=== PATIENT | female | born 1935 | race Caucasian/White ===

== ENCOUNTER 2017-06-15 07:08 | Inpatient (IN) | payer MEDICARE, BC ==
[~2017-06-15] VITALS: Ht 165.1 cm; Wt 78.6 kg
[~2017-06-15 07:08] MED LIST: ALPR.25; ALPR.25 PO; ASPI81CH PO; ASPI81EC PO; ATOR10; Amiodarone HCl200 MG PO; BUSP10 PO; CETI10; CETI10 PO; CITA20; CITA20 PO; CYAN1000I IM; CYAN500 PO; ERGO50000 PO; ESOM20 PO; FLUT.05NI; HYDACE5; IBUHYD PO; LEVSOD100; LEVSOD75 PO; LISI20; LISINOPRIL (ZESTRIL) PO; LORPSEER12 PO; LOVA40; META800 PO; METO100ER; NITR.4SL SL; OMEG1CAP30 PO; Omeprazole20 M1; SOTO80 PO; WARF2.5 PO; WARF5
[2017-06-15 07:36] LABS: BASOPHILS ABSOLUTE AUTO 0.01 K/mm3 (0.00-0.23); BASOPHILS PERCENT AUTO 0 % (0-2); EOSINOPHILS ABSOLUTE AUTO 0.01 K/mm3 (0.00-0.68); EOSINOPHILS PERCENT AUTO 0 % (0-6); Hemoglobin 11.5 g/dL (11.5-16.0); IMMATURE GRAN ABSOLUTE AUTO 0.03 K/mm3 (0.00-0.10); IMMATURE GRAN PERCENT AUTO 0 % (0-1); LYMPHOCYTES ABSOLUTE AUTO 0.35 K/mm3 (0.84-5.20); LYMPHOCYTES PERCENT AUTO 4 % (21-46); MONOCYTES ABSOLUTE AUTO 0.24 K/mm3 (0.16-1.47); MONOCYTES PERCENT AUTO 3 % (4-13); Mean Corpuscular HGB 32.9 pg (26.0-34.0); Mean Corpuscular HGB Conc 31.9 g/dL (31.5-36.5); Mean Corpuscular Volume 103 fL (80-100); Mean Platelet Volume 11.5 fL (9.1-12.4); NEUTROPHILS ABSOLUTE AUTO 7.55 K/mm3 (1.96-9.15); NEUTROPHILS PERCENT AUTO 92 % (41-73); Platelet Count 171 K/mm3 (150-400); RDW Coefficient Variation 12.2 % (11.7-14.2); RDW Standard Deviation 46.4 fL (35.1-46.3); White Blood Cell Count 8.19 K/mm3 (4.00-11.30)
[2017-06-15 07:54] LABS: Alanine Aminotransfer (ALT/SGP 16 U/L (12-78); Albumin, Blood 3.5 g/dL (3.4-5.0); Alk Phos 30 U/L (50-136); Anion Gap 8 mmol/L (6-16); Aspartate Aminotrans (AST/SGOT 16 U/L (12-37); Bilirubin, Total 0.5 mg/dL (0.1-1.0); Blood Urea Nitrogen 15 mg/dL (8-24); Bun/Creatinine Ratio 14.7 (12.0-20.0); CO2, Blood 29 mmol/L (21-32); Calcium, Blood 7.7 mg/dL (8.5-10.1); Chloride, Blood 106 mmol/L (98-108); Creatinine, Blood 1.02 mg/dL (0.40-1.00); Free Thyroxine 1.33 ng/dL (0.70-1.60); Globulin, Blood 3.6 g/dL (2.2-4.0); Glomerular Filtration Rate 55 (60-); Glucose, Blood 104 mg/dL (70-99); Potassium, Blood 3.6 mmol/L (3.5-5.5); Sodium, Blood 143 mmol/L (136-145); Total Protein, Blood 7.1 g/dL (6.4-8.2); Troponin I <0.015 ng/mL (0.000-0.040)
[2017-06-15 10:10] LABS: International Normalized Ratio 2.97
[2017-06-15] MEDS ORDERED: TRAZ100 PO (13:24)
[2017-06-16 04:33] LABS: BASOPHILS ABSOLUTE AUTO 0.03 K/mm3 (0.00-0.23); BASOPHILS PERCENT AUTO 0 % (0-2); EOSINOPHILS ABSOLUTE AUTO 0.03 K/mm3 (0.00-0.68); EOSINOPHILS PERCENT AUTO 0 % (0-6); Hematocrit 31.6 % (33.0-51.0); IMMATURE GRAN ABSOLUTE AUTO 0.07 K/mm3 (0.00-0.10); IMMATURE GRAN PERCENT AUTO 0 % (0-1); LYMPHOCYTES ABSOLUTE AUTO 1.07 K/mm3 (0.84-5.20); LYMPHOCYTES PERCENT AUTO 7 % (21-46); MONOCYTES ABSOLUTE AUTO 0.73 K/mm3 (0.16-1.47); MONOCYTES PERCENT AUTO 5 % (4-13); Mean Corpuscular HGB 32.2 pg (26.0-34.0); Mean Corpuscular HGB Conc 31.6 g/dL (31.5-36.5); Mean Corpuscular Volume 102 fL (80-100); Mean Platelet Volume 12.1 fL (9.1-12.4); NEUTROPHILS ABSOLUTE AUTO 14.07 K/mm3 (1.96-9.15); NEUTROPHILS PERCENT AUTO 88 % (41-73); Platelet Count 158 K/mm3 (150-400); RDW Coefficient Variation 12.4 % (11.7-14.2); RDW Standard Deviation 46.1 fL (35.1-46.3); Red Blood Cell Count 3.11 M/mm3 (3.80-5.20)
[2017-06-16 04:53] LABS: International Normalized Ratio 3.16
[2017-06-16 04:55] LABS: Calcium, Blood 7.4 mg/dL (8.5-10.1); Creatinine, Blood 1.06 mg/dL (0.40-1.00); Potassium, Blood 3.3 mmol/L (3.5-5.5)
[2017-06-17 04:40] LABS: BASOPHILS ABSOLUTE AUTO 0.02 K/mm3 (0.00-0.23); BASOPHILS PERCENT AUTO 0 % (0-2); EOSINOPHILS ABSOLUTE AUTO 0.11 K/mm3 (0.00-0.68); EOSINOPHILS PERCENT AUTO 1 % (0-6); Hematocrit 30.9 % (33.0-51.0); Hemoglobin 9.7 g/dL (11.5-16.0); IMMATURE GRAN ABSOLUTE AUTO 0.04 K/mm3 (0.00-0.10); IMMATURE GRAN PERCENT AUTO 0 % (0-1); LYMPHOCYTES ABSOLUTE AUTO 0.93 K/mm3 (0.84-5.20); LYMPHOCYTES PERCENT AUTO 10 % (21-46); MONOCYTES ABSOLUTE AUTO 0.56 K/mm3 (0.16-1.47); MONOCYTES PERCENT AUTO 6 % (4-13); Mean Corpuscular HGB 32.3 pg (26.0-34.0); Mean Corpuscular HGB Conc 31.4 g/dL (31.5-36.5); Mean Corpuscular Volume 103 fL (80-100); NEUTROPHILS ABSOLUTE AUTO 7.38 K/mm3 (1.96-9.15); NEUTROPHILS PERCENT AUTO 82 % (41-73); Platelet Count 143 K/mm3 (150-400); RDW Coefficient Variation 12.4 % (11.7-14.2); RDW Standard Deviation 46.7 fL (35.1-46.3); White Blood Cell Count 9.04 K/mm3 (4.00-11.30)
[2017-06-17 04:56] LABS: International Normalized Ratio 3.54; Prothrombin Time Results 38.3 Sec (9.7-11.5)
[2017-06-17 05:01] LABS: Albumin/Globulin Ratio 0.8 (0.8-1.8); Bilirubin, Total 0.4 mg/dL (0.1-1.0); Bun/Creatinine Ratio 16.1 (12.0-20.0); Calcium, Blood 7.8 mg/dL (8.5-10.1); Creatinine, Blood 1.37 mg/dL (0.40-1.00); Globulin, Blood 3.7 g/dL (2.2-4.0); Potassium, Blood 3.8 mmol/L (3.5-5.5); Total Protein, Blood 6.7 g/dL (6.4-8.2)
[2017-06-18 04:09] LABS: BASOPHILS ABSOLUTE AUTO 0.03 K/mm3 (0.00-0.23); BASOPHILS PERCENT AUTO 1 % (0-2); EOSINOPHILS ABSOLUTE AUTO 0.11 K/mm3 (0.00-0.68); EOSINOPHILS PERCENT AUTO 2 % (0-6); Hematocrit 32.7 % (33.0-51.0); Hemoglobin 10.1 g/dL (11.5-16.0); IMMATURE GRAN ABSOLUTE AUTO 0.01 K/mm3 (0.00-0.10); IMMATURE GRAN PERCENT AUTO 0 % (0-1); LYMPHOCYTES ABSOLUTE AUTO 1.15 K/mm3 (0.84-5.20); LYMPHOCYTES PERCENT AUTO 19 % (21-46); MONOCYTES ABSOLUTE AUTO 0.55 K/mm3 (0.16-1.47); MONOCYTES PERCENT AUTO 9 % (4-13); Mean Corpuscular HGB 32.3 pg (26.0-34.0); Mean Corpuscular HGB Conc 30.9 g/dL (31.5-36.5); Mean Corpuscular Volume 105 fL (80-100); Mean Platelet Volume 12.1 fL (9.1-12.4); NEUTROPHILS ABSOLUTE AUTO 4.37 K/mm3 (1.96-9.15); NEUTROPHILS PERCENT AUTO 70 % (41-73); Platelet Count 157 K/mm3 (150-400); RDW Coefficient Variation 12.2 % (11.7-14.2); RDW Standard Deviation 46.8 fL (35.1-46.3); Red Blood Cell Count 3.13 M/mm3 (3.80-5.20); White Blood Cell Count 6.22 K/mm3 (4.00-11.30)
[2017-06-18 04:19] LABS: International Normalized Ratio 2.3; Prothrombin Time Results 24.5 Sec (9.7-11.5)
[2017-06-18 04:30] LABS: Albumin, Blood 3.1 g/dL (3.4-5.0); Anion Gap 7 mmol/L (6-16); Blood Urea Nitrogen 22 mg/dL (8-24); CO2, Blood 29 mmol/L (21-32); Calcium, Blood 8.1 mg/dL (8.5-10.1); Chloride, Blood 104 mmol/L (98-108); Creatinine, Blood 1.16 mg/dL (0.40-1.00); Glomerular Filtration Rate 48 (60-); Glucose, Blood 102 mg/dL (70-99); Phosphorus, Blood 2.3 mg/dL (2.5-4.9); Potassium, Blood 3.8 mmol/L (3.5-5.5); Sodium, Blood 140 mmol/L (136-145)
[2017-06-18] MEDS ORDERED: METOPROLOL TARTRATE PO (11:07)
[2017-06-18] MEDS ORDERED: FURO20 PO (11:09)
[2017-06-18] MEDS ORDERED: LEVFLO250 PO (11:10)
[2017-06-19 04:23] LABS: Prothrombin Time Results 21.2 Sec (9.7-11.5)
== END 2017-06-19 11:45 | disposition home or self-care (01) | DRG 871 ==
LOC: ER 07:08 → PCU 09:40
PROVIDERS: Emergency Medicine; Family Medicine; Internal Medicine
DX: A41.9 Sepsis, unspecified organism (principal); I50.23 Acute on chronic systolic (congestive) heart failure; J18.9 Pneumonia, unspecified organism; R04.2 Hemoptysis; I48.91 Unspecified atrial fibrillation; Z79.01 Long term (current) use of anticoagulants; I11.0 Hypertensive heart disease with heart failure; E03.9 Hypothyroidism, unspecified; Z79.82 Long term (current) use of aspirin
CPT/HCPCS: 36415; 71046; 80048; 80053; 80069; 83605; 83735; 83880; 84439; 84443; 84484; 85025; 85610; 87070; 87205; 87449; 93005; 93010; 93306; 94760; 96365; 96375; 96376; 99285; J1940; J1956

== ENCOUNTER 2017-07-09 18:21 | Inpatient (IN) | payer MEDICARE, BC ==
[~2017-07-09] VITALS: Ht 162.6 cm; Wt 78.0 kg
[~2017-07-09 18:21] MED LIST changes: +FURO20 PO; +LEVFLO250 PO; +Lopressor 50 mg50 MG PO; +TRAZ100 PO
[2017-07-09 18:44] LABS: BASOPHILS ABSOLUTE AUTO 0.02 K/mm3 (0.00-0.23); BASOPHILS PERCENT AUTO 0 % (0-2); EOSINOPHILS ABSOLUTE AUTO 0.04 K/mm3 (0.00-0.68); EOSINOPHILS PERCENT AUTO 1 % (0-6); Hemoglobin 10.9 g/dL (11.5-16.0); IMMATURE GRAN ABSOLUTE AUTO 0.01 K/mm3 (0.00-0.10); IMMATURE GRAN PERCENT AUTO 0 % (0-1); LYMPHOCYTES ABSOLUTE AUTO 1.21 K/mm3 (0.84-5.20); LYMPHOCYTES PERCENT AUTO 24 % (21-46); MONOCYTES ABSOLUTE AUTO 0.51 K/mm3 (0.16-1.47); MONOCYTES PERCENT AUTO 10 % (4-13); Mean Corpuscular HGB 32.8 pg (26.0-34.0); Mean Corpuscular HGB Conc 32.1 g/dL (31.5-36.5); Mean Corpuscular Volume 102 fL (80-100); Mean Platelet Volume 11.4 fL (9.1-12.4); NEUTROPHILS ABSOLUTE AUTO 3.21 K/mm3 (1.96-9.15); NEUTROPHILS PERCENT AUTO 64 % (41-73); Platelet Count 186 K/mm3 (150-400); RDW Coefficient Variation 12.9 % (11.7-14.2); RDW Standard Deviation 48.5 fL (35.1-46.3); Red Blood Cell Count 3.32 M/mm3 (3.80-5.20)
[2017-07-09 19:04] LABS: Alanine Aminotransfer (ALT/SGP 57 U/L (12-78); Albumin, Blood 3.7 g/dL (3.4-5.0); Albumin/Globulin Ratio 1.1 (0.8-1.8); Alk Phos 36 U/L (50-136); Anion Gap 6 mmol/L (6-16); Aspartate Aminotrans (AST/SGOT 38 U/L (12-37); Bilirubin, Total 0.3 mg/dL (0.1-1.0); Blood Urea Nitrogen 17 mg/dL (8-24); Bun/Creatinine Ratio 18.7 (12.0-20.0); CO2, Blood 27 mmol/L (21-32); Calcium, Blood 8.2 mg/dL (8.5-10.1); Chloride, Blood 109 mmol/L (98-108); Creatinine, Blood 0.91 mg/dL (0.40-1.00); Globulin, Blood 3.4 g/dL (2.2-4.0); Glomerular Filtration Rate >60 (60-); Glucose, Blood 99 mg/dL (70-99); Potassium, Blood 3.8 mmol/L (3.5-5.5); Sodium, Blood 142 mmol/L (136-145); Total Protein, Blood 7.1 g/dL (6.4-8.2); Troponin I <0.015 ng/mL (0.000-0.040)
[2017-07-09 20:02] LABS: International Normalized Ratio 1.54; Prothrombin Time Results 16.2 Sec (9.7-11.5)
[2017-07-09 23:08] LABS: Magnesium, Blood 2.2 mg/dL (1.6-2.4)
[2017-07-10] MEDS ORDERED: CETI5 PO (00:22)
[2017-07-10] MEDS ORDERED: HIGH POTENCY I134 MG PO (00:27)
[2017-07-10] MEDS ORDERED: CYAN1000I IM (00:28)
[2017-07-10 02:04] LABS: Source, Urine Clean Catch
[2017-07-10 02:10] LABS: Bilirubin, Urine Neg (Neg); Blood, Urine Neg (Neg); Glucose Qualitative, Urine Neg (Neg); Ketones, Urine Neg (Neg); Leukocyte Esterase, Urine Neg (Neg); Nitrite, Urine Neg (Neg); Protein, Urine Neg (Neg); Specific Gravity, Urine 1.005 (1.003-1.022); Urobilinogen, Urine NORM (Normal); pH, Urine 6.5 (5.0-8.0)
[2017-07-10 02:11] LABS: Appearance, Urine Clear (Clear); Color, Urine Pale Yellow (P-Yellow)
[2017-07-10 03:09] LABS: BASOPHILS ABSOLUTE AUTO 0.03 K/mm3 (0.00-0.23); BASOPHILS PERCENT AUTO 1 % (0-2); EOSINOPHILS ABSOLUTE AUTO 0.06 K/mm3 (0.00-0.68); EOSINOPHILS PERCENT AUTO 1 % (0-6); Hemoglobin 10.8 g/dL (11.5-16.0); IMMATURE GRAN ABSOLUTE AUTO 0.01 K/mm3 (0.00-0.10); IMMATURE GRAN PERCENT AUTO 0 % (0-1); LYMPHOCYTES ABSOLUTE AUTO 1.24 K/mm3 (0.84-5.20); LYMPHOCYTES PERCENT AUTO 29 % (21-46); MONOCYTES ABSOLUTE AUTO 0.49 K/mm3 (0.16-1.47); MONOCYTES PERCENT AUTO 11 % (4-13); Mean Corpuscular HGB 33.3 pg (26.0-34.0); Mean Corpuscular HGB Conc 32.7 g/dL (31.5-36.5); Mean Corpuscular Volume 102 fL (80-100); Mean Platelet Volume 11.5 fL (9.1-12.4); NEUTROPHILS ABSOLUTE AUTO 2.52 K/mm3 (1.96-9.15); NEUTROPHILS PERCENT AUTO 58 % (41-73); Platelet Count 181 K/mm3 (150-400); RDW Coefficient Variation 12.9 % (11.7-14.2); Red Blood Cell Count 3.24 M/mm3 (3.80-5.20); White Blood Cell Count 4.35 K/mm3 (4.00-11.30)
[2017-07-10 03:24] LABS: International Normalized Ratio 1.43
[2017-07-10 03:25] LABS: Alanine Aminotransfer (ALT/SGP 51 U/L (12-78); Albumin, Blood 3.5 g/dL (3.4-5.0); Albumin/Globulin Ratio 1.1 (0.8-1.8); Alk Phos 34 U/L (50-136); Anion Gap 6 mmol/L (6-16); Aspartate Aminotrans (AST/SGOT 30 U/L (12-37); Bilirubin, Total 0.3 mg/dL (0.1-1.0); Blood Urea Nitrogen 15 mg/dL (8-24); Bun/Creatinine Ratio 16.1 (12.0-20.0); CO2, Blood 28 mmol/L (21-32); CPK Creatine Kinase 92 U/L (26-193); Calcium, Blood 7.9 mg/dL (8.5-10.1); Chloride, Blood 110 mmol/L (98-108); Creatinine, Blood 0.93 mg/dL (0.40-1.00); Globulin, Blood 3.2 g/dL (2.2-4.0); Glomerular Filtration Rate >60 (60-); Glucose, Blood 100 mg/dL (70-99); Potassium, Blood 3.4 mmol/L (3.5-5.5); Sodium, Blood 144 mmol/L (136-145); Total Protein, Blood 6.7 g/dL (6.4-8.2); Troponin I <0.015 ng/mL (0.000-0.040)
[2017-07-10 11:18] LABS: CPK Creatine Kinase 101 U/L (26-193); Troponin I <0.015 ng/mL (0.000-0.040)
[2017-07-11 04:35] LABS: BASOPHILS PERCENT AUTO 0 % (0-2); EOSINOPHILS PERCENT AUTO 0 % (0-6); Hematocrit 33.7 % (33.0-51.0); Hemoglobin 10.6 g/dL (11.5-16.0); IMMATURE GRAN ABSOLUTE AUTO 0.03 K/mm3 (0.00-0.10); IMMATURE GRAN PERCENT AUTO 1 % (0-1); LYMPHOCYTES ABSOLUTE AUTO 0.47 K/mm3 (0.84-5.20); LYMPHOCYTES PERCENT AUTO 7 % (21-46); MONOCYTES ABSOLUTE AUTO 0.21 K/mm3 (0.16-1.47); MONOCYTES PERCENT AUTO 3 % (4-13); Mean Corpuscular HGB 32.6 pg (26.0-34.0); Mean Corpuscular HGB Conc 31.5 g/dL (31.5-36.5); Mean Corpuscular Volume 104 fL (80-100); Mean Platelet Volume 11.7 fL (9.1-12.4); NEUTROPHILS ABSOLUTE AUTO 5.71 K/mm3 (1.96-9.15); NEUTROPHILS PERCENT AUTO 89 % (41-73); Platelet Count 174 K/mm3 (150-400); RDW Coefficient Variation 12.8 % (11.7-14.2); RDW Standard Deviation 48.5 fL (35.1-46.3); Red Blood Cell Count 3.25 M/mm3 (3.80-5.20); White Blood Cell Count 6.42 K/mm3 (4.00-11.30)
[2017-07-11 04:51] LABS: International Normalized Ratio 1.68; Prothrombin Time Results 17.8 Sec (9.7-11.5)
[2017-07-11 04:59] LABS: Albumin, Blood 3.3 g/dL (3.4-5.0); Anion Gap 6 mmol/L (6-16); Blood Urea Nitrogen 14 mg/dL (8-24); Bun/Creatinine Ratio 16.9 (12.0-20.0); CO2, Blood 27 mmol/L (21-32); Calcium, Blood 7.6 mg/dL (8.5-10.1); Chloride, Blood 110 mmol/L (98-108); Creatinine, Blood 0.83 mg/dL (0.40-1.00); Glomerular Filtration Rate >60 (60-); Glucose, Blood 126 mg/dL (70-99); Phosphorus, Blood 2.8 mg/dL (2.5-4.9); Potassium, Blood 4.4 mmol/L (3.5-5.5); Sodium, Blood 143 mmol/L (136-145)
[2017-07-11] MEDS ORDERED: POTASSIUM CHLO20 MEQ PO (12:23)
[2017-07-11] MEDS ORDERED: LANOXIN250 MC1 PO (12:24)
== END 2017-07-11 13:45 | disposition home or self-care (01) | DRG 287 ==
LOC: ER 18:21 → ICUW 18:22 → ER 18:22 → MEDS 18:22 → ICUW 23:25
PROVIDERS: Emergency Medicine; Family Medicine; Internal Medicine
PROC: B211YZZ Fluoroscopy of Multiple Coronary Arteries using Other Contrast (ICD-10-PCS; principal; 2017-07-10)
PROC: B215YZZ Fluoroscopy of Left Heart using Other Contrast (ICD-10-PCS; 2017-07-10)
DX: I11.0 Hypertensive heart disease with heart failure (principal); I50.23 Acute on chronic systolic (congestive) heart failure; I48.91 Unspecified atrial fibrillation; Z79.01 Long term (current) use of anticoagulants; E87.6 Hypokalemia; Z86.711 Personal history of pulmonary embolism; Z87.898 Personal history of other specified conditions; Z86.718 Personal history of other venous thrombosis and embolism; E03.9 Hypothyroidism, unspecified; F41.9 Anxiety disorder, unspecified; K21.9 Gastro-esophageal reflux disease without esophagitis
CPT/HCPCS: 36415; 71046; 80053; 80069; 81003; 82550; 83735; 83880; 84484; 85025; 85610; 93005; 93010; 93458; 96374; 96375; 96376; 99152; 99285; C1769; C1894; G0378; J1160; J1200; J1644; J1650; J1720; J1940; J2250; J2930; J3010; J7030; Q9967

== ENCOUNTER 2021-01-07 01:06 | Emergency (ER) | payer MEDICARE, BC ==
[~2021-01-07] VITALS: Ht 165.1 cm; Wt 62.1 kg
[~2021-01-07 01:06] MED LIST changes: +CETI5 PO; +HIGH POTENCY I134 MG PO; +Hydrocodone-Ap1 EA20 PO; +LANOXIN250 MC1 PO; +METO50 PO; +METO50ER PO; +POTASSIUM CHLO20 MEQ PO; +Zofran Odt4 MG SL
[2021-01-07] MEDS ORDERED: XARELTO20 MG PO (01:18)
[2021-01-07 03:05] LABS: Calcium, Ionized (POC) 1.14 mmol/L (1.10-1.46); Chloride (POC) 98 mmol/L (98-108); Creatinine (POC) 0.9 mg/dL (0.6-1.0); Glucose (ISTAT POC) 137 mg/dL (70-99); Hemoglobin (POC) 10.2 g/dL (12.0-16.0); Potassium (POC) 3.7 mmol/L (3.5-5.5); Sodium (POC) 141 mmol/L (135-148); Total CO2 (POC) 31 mmol/L (21-32)
== END 2021-01-07 05:49 | disposition home or self-care (01) ==
LOC: ER 01:06
PROVIDERS: Physician Assistant
DX: R04.0 Epistaxis (principal); I48.91 Unspecified atrial fibrillation; Z86.718 Personal history of other venous thrombosis and embolism; Z86.711 Personal history of pulmonary embolism; Z88.0 Allergy status to penicillin; Z88.2 Allergy status to sulfonamides; Z91.013 Allergy to seafood; Z91.041 Radiographic dye allergy status; Z79.899 Other long term (current) drug therapy; Z79.82 Long term (current) use of aspirin
CPT/HCPCS: 30905; 80047; 85014; 99283-25; A9270

== ENCOUNTER 2021-12-12 15:56 | Observation (INO) | payer MEDICARE, BC ==
[~2021-12-12] VITALS: Ht 165.1 cm; Wt 62.8 kg
[~2021-12-12 15:56] MED LIST changes: +XARELTO20 MG PO
[2021-12-12 16:24] LABS: BASOPHILS ABSOLUTE AUTO 0.05 K/mm3 (0.00-0.23); BASOPHILS PERCENT AUTO 1 % (0-2); EOSINOPHILS ABSOLUTE AUTO 0.02 K/mm3 (0.00-0.68); EOSINOPHILS PERCENT AUTO 0 % (0-6); Hematocrit 23.8 % (33.0-51.0); Hemoglobin 7.2 g/dL (11.5-16.0); IMMATURE GRAN ABSOLUTE AUTO 0.08 K/mm3 (0.00-0.10); IMMATURE GRAN PERCENT AUTO 1 % (0-1); LYMPHOCYTES ABSOLUTE AUTO 1.57 K/mm3 (0.84-5.20); LYMPHOCYTES PERCENT AUTO 24 % (21-46); MONOCYTES ABSOLUTE AUTO 0.98 K/mm3 (0.16-1.47); MONOCYTES PERCENT AUTO 15 % (4-13); Mean Corpuscular HGB 31.3 pg (26.0-34.0); Mean Corpuscular HGB Conc 30.3 g/dL (31.5-36.5); Mean Corpuscular Volume 104 fL (80-100); NEUTROPHILS ABSOLUTE AUTO 3.99 K/mm3 (1.96-9.15); NEUTROPHILS PERCENT AUTO 60 % (41-73); Platelet Count 237 K/mm3 (150-400); RDW Coefficient Variation 14.2 % (11.7-14.2); RDW Standard Deviation 53.1 fL (35.1-46.3); White Blood Cell Count 6.69 K/mm3 (4.00-11.30)
[2021-12-12 16:37] LABS: Albumin, Blood 3.9 g/dL (3.4-5.0); Albumin/Globulin Ratio 1.2 (0.8-1.8); Bilirubin, Total 0.3 mg/dL (0.1-1.0); Bun/Creatinine Ratio 18.6 (12.0-20.0); Calcium, Blood 8.5 mg/dL (8.5-10.1); Creatinine, Blood 0.97 mg/dL (0.40-1.00); Globulin, Blood 3.3 g/dL (2.2-4.0); Potassium, Blood 3.7 mmol/L (3.5-5.5); Total Protein, Blood 7.2 g/dL (6.4-8.2)
[2021-12-12] MEDS ORDERED: Percocet 5-3251 EACH PO (18:21)
[2021-12-12] MEDS ORDERED: POTCHL20ER PO (18:22)
[2021-12-12] MEDS ORDERED: BUSP10 PO (18:24)
[2021-12-12] MEDS ORDERED: SERT50 PO (18:24)
[2021-12-12] MEDS ORDERED: FURO100EL IV (18:33)
[2021-12-12] MEDS ORDERED: DIGOX125 MC1 PO (18:36)
[2021-12-12] MEDS ORDERED: ROSU10TA PO (18:37)
[2021-12-12] MEDS ORDERED: ERGO400 PO (18:41)
[2021-12-12 19:58] LABS: Digoxin (Lanoxin) 1.33 ug/mL (0.80-2.00)
[2021-12-12 20:28] LABS: Percent Saturation 8.4 % (15.0-50.0)
--- NOTE | 2021-12-12 22:25 | NUR ---
ADMIT NOTE PATIENT ADMITTED FROM ER AT 2114. PATIENT SETTLED INTO ROOM. PATIENT ORIENTED TO CALL LIGHT AND TV CONTROL. PATIENT IS A SBA FOR TRANSFERS. PATIENT ARRIVED WITH BLOOD RUNNING. VITALS DONE, PAPERWORK IN CHART FOR BLOOD ADMINISTER. ADMISSION COMPLETE. PATIENT RESTING COMFORTABLE.
--- NOTE | 2021-12-13 04:26 | NUR ---
SUMMARY: PATIENT ADMITTED OVERNIGHT FOR CHESTPAIN WITH EXHERTION. NO ACUTE EPISODES OF CHEST PAIN OVER NIGHT. PATIENT ON TELE RUNNING A FIB RATE CONTROLLED. PATIENT HAS A OPEN BLISTER ON HER TOE THAT CAUSED PAIN, TREATED WITH ICE PACK, OXY AND TYLENOL. PATIENT EDUCATED SHE IS NPO THIS MORNING FOR A STRESS TEST. ATTEMPTED TO CALL CONSULT THREE TIMES FROM DIFFERENT PHONES FOR BUT CALL CENTER PHONES WERE HAVING ISSUES. WILL MAKE NEXT SHIFT AWARE. PATIENT RESTED COMFORTABLY RECIEVED ONE UNIT OF BLOOD. HOME MEDS RESTARTED.
[2021-12-13 04:57] LABS: Hematocrit 24.1 % (33.0-51.0); Hemoglobin 7.4 g/dL (11.5-16.0); Mean Corpuscular HGB 30.3 pg (26.0-34.0); Mean Corpuscular HGB Conc 30.7 g/dL (31.5-36.5); Mean Platelet Volume 11.1 fL (9.1-12.4); Platelet Count 202 K/mm3 (150-400); RDW Coefficient Variation 19.1 % (11.7-14.2); RDW Standard Deviation 70.7 fL (35.1-46.3); Red Blood Cell Count 2.44 M/mm3 (3.80-5.20); White Blood Cell Count 7.11 K/mm3 (4.00-11.30)
[2021-12-13 04:58] LABS: Mean Corpuscular Volume 99 fL (80-100)
[2021-12-13 05:33] LABS: Bun/Creatinine Ratio 21.3 (12.0-20.0); Calcium, Blood 8.1 mg/dL (8.5-10.1); Creatinine, Blood 0.98 mg/dL (0.40-1.00); Potassium, Blood 3.9 mmol/L (3.5-5.5)
--- NOTE | 2021-12-13 18:40 | NUR ---
SHIFT SUMMARY PT UP TO BATHROOM INDEPENDENTLY. DENIES ANY CHEST PAIN TODAY BUT DOES REPORT PAIN TO L GREAT TOE DUE TO RECENT PROCEDURE AND INJURY. MOBILITY TABLE. STRESS TEST COMPLETED. FAMILY AT BEDSIDE ON AND OFF.
--- NOTE | 2021-12-14 04:29 | NUR ---
SHIFT SUMMARY: PT IS ALERT AND ORIENTED. PT IS CALM AND COOPERATIVE WITH CARE. PT CALLS APPROPRIATELY. PT IS INDEPENDENT IN THE ROOM. PT REPORTS PAIN ON SEVERAL OCCASIONS, MEDICATING PER EMAR. PT DENIES NAUSEA, VOMITING, AND SOB. PT SLEPT MUCH OF THE NIGHT WHEN NOT DISTURBED. NO ACUTE CHANGES OR COMPLICATIONS THIS SHIFT. BED IN LOW POSITION, CALL LIGHT WITHIN REACH. WILL CONTINUE TO MONITOR.
== END 2021-12-14 16:43 | disposition home or self-care (01) ==
LOC: ER 15:56 → MEDS 15:57
PROVIDERS: Emergency Medicine; Physician Assistant; ADMIT Internal Medicine
DX: R07.89 Other chest pain (principal); I35.0 Nonrheumatic aortic (valve) stenosis; D64.9 Anemia, unspecified; I48.0 Paroxysmal atrial fibrillation; I48.92 Unspecified atrial flutter; I25.10 Atherosclerotic heart disease of native coronary artery without angina pectoris; I11.0 Hypertensive heart disease with heart failure; I50.9 Heart failure, unspecified; E03.9 Hypothyroidism, unspecified; K21.9 Gastro-esophageal reflux disease without esophagitis; Z86.711 Personal history of pulmonary embolism; Z86.718 Personal history of other venous thrombosis and embolism; Z88.0 Allergy status to penicillin; Z88.2 Allergy status to sulfonamides; Z91.041 Radiographic dye allergy status; Z79.01 Long term (current) use of anticoagulants; Z79.899 Other long term (current) drug therapy
CPT/HCPCS: 36415; 36430; 71045; 78452; 80048; 80053; 80162; 82728; 83540; 83550; 83690; 83880; 84484; 85025; 85027; 86850; 86900; 86901; 86923; 93005; 93010; 93017; 93306; 96365; 96366; 99285-25; A9270; A9500; G0378; J0706; J2785; J2916; J7030; P9016

== ENCOUNTER 2022-05-19 06:28 | Inpatient (IN) | payer MEDICARE, BC ==
[~2022-05-19] VITALS: Ht 170.2 cm; Wt 61.1 kg
[~2022-05-19 06:28] MED LIST changes: +DIGOX125 MC1 PO; +ERGO400 PO; +FURO100EL IV; +OMEP20ER PO; -Omeprazole20 M1; +POTCHL20ER PO; +Percocet 5-3251 EACH PO; +ROSU10TA PO; +SERT50 PO
[2022-05-19 06:45] LABS: PCO2 Arterial 47.9 mmHg (35-45); pH Blood Arterial 7.37 (7.35-7.45)
[2022-05-19 06:46] LABS: PO2 Arterial 41.4 mmHg (80-100)
[2022-05-19 07:09] LABS: BASOPHILS ABSOLUTE AUTO 0.03 K/mm3 (0.00-0.23); BASOPHILS PERCENT AUTO 0 % (0-2); EOSINOPHILS ABSOLUTE AUTO 0.01 K/mm3 (0.00-0.68); EOSINOPHILS PERCENT AUTO 0 % (0-6); Hematocrit 42.9 % (33.0-51.0); Hemoglobin 13.7 g/dL (11.5-16.0); IMMATURE GRAN ABSOLUTE AUTO 0.23 K/mm3 (0.00-0.10); IMMATURE GRAN PERCENT AUTO 2 % (0-1); LYMPHOCYTES ABSOLUTE AUTO 1.44 K/mm3 (0.84-5.20); LYMPHOCYTES PERCENT AUTO 11 % (21-46); MONOCYTES ABSOLUTE AUTO 0.46 K/mm3 (0.16-1.47); MONOCYTES PERCENT AUTO 3 % (4-13); Mean Corpuscular HGB 29.5 pg (26.0-34.0); Mean Corpuscular HGB Conc 31.9 g/dL (31.5-36.5); Mean Corpuscular Volume 92 fL (80-100); Mean Platelet Volume 11.1 fL (9.1-12.4); NEUTROPHILS ABSOLUTE AUTO 11.37 K/mm3 (1.96-9.15); NEUTROPHILS PERCENT AUTO 84 % (41-73); Platelet Count 190 K/mm3 (150-400); RDW Coefficient Variation 13.3 % (11.7-14.2); RDW Standard Deviation 45.2 fL (35.1-46.3); Red Blood Cell Count 4.65 M/mm3 (3.80-5.20); White Blood Cell Count 13.54 K/mm3 (4.00-11.30)
[2022-05-19 07:17] LABS: Albumin, Blood 3.8 g/dL (3.4-5.0); Albumin/Globulin Ratio 0.8 (0.8-1.8); Bilirubin, Total 0.5 mg/dL (0.1-1.0); Bun/Creatinine Ratio 22.4 (12.0-20.0); Calcium, Blood 9.4 mg/dL (8.5-10.1); Creatinine, Blood 0.94 mg/dL (0.40-1.00); Globulin, Blood 4.7 g/dL (2.2-4.0); Potassium, Blood 3.5 mmol/L (3.5-5.5); Total Protein, Blood 8.5 g/dL (6.4-8.2)
[2022-05-19 08:29] LABS: Influenza A, PCR NEGATIVE (NEGATIVE); Influenza B, PCR NEGATIVE (NEGATIVE); Resp Syncytial Virus, PCR NEGATIVE (NEGATIVE); SARS-Cov-2 (COVID-19) PCR, MMC NEGATIVE (NEGATIVE)
[2022-05-19 08:39] LABS: Digoxin (Lanoxin) 0.97 ug/mL (0.80-2.00)
[2022-05-19 09:35] LABS: International Normalized Ratio 3.66; Prothrombin Time Results 35.3 Sec (9.7-11.5)
[2022-05-19] MEDS ORDERED: WARF2.5 PO (10:10)
--- NOTE | 2022-05-19 10:43 | NUR ---
FLOW RATE CHANGE: Changed by Dr Nair
[2022-05-19 19:10] LABS: Source, Urine Clean Catch
[2022-05-19 19:15] LABS: Appearance, Urine Clear (Clear); Bilirubin, Urine Neg (Neg); Blood, Urine 3+ (Neg); Color, Urine Yellow (P-Yellow); Glucose Qualitative, Urine Neg (Neg); Ketones, Urine Neg (Neg); Leukocyte Esterase, Urine 1+ (Neg); Nitrite, Urine Neg (Neg); Protein, Urine 2+ (Neg); Urobilinogen, Urine NORM (Normal)
--- NOTE | 2022-05-19 19:16 | NUR ---
SHIFT SUMMARY: pt arrived to ICU with [facility] in place. fio2 titrated down to 40%. pt tolerating well. she has transferred from bed to commode a few times with assistance. Tmax 100.6. UA obtained. Bedside swallow performed successfully, however while eating dinner pt began spitting up food. She was given phenergan. Pt informed RN that a similar episode happened last night while she was eating. She complained of the feeling of food being stuck in her throat before she began vomiting. Dr Wilson updated. Pt made NPO and speech eval ordered.
[2022-05-19 19:25] LABS: Mucus Light (0-Heavy); Squamous Epithelial Cells Rare /hpf (Few)
[2022-05-19 19:26] LABS: Bacteria Mod /hpf
[2022-05-20 03:53] LABS: BASOPHILS ABSOLUTE AUTO 0.03 K/mm3 (0.00-0.23); BASOPHILS PERCENT AUTO 0 % (0-2); EOSINOPHILS PERCENT AUTO 0 % (0-6); Hematocrit 29.1 % (33.0-51.0); Hemoglobin 9.5 g/dL (11.5-16.0); IMMATURE GRAN ABSOLUTE AUTO 0.63 K/mm3 (0.00-0.10); IMMATURE GRAN PERCENT AUTO 2 % (0-1); LYMPHOCYTES ABSOLUTE AUTO 0.78 K/mm3 (0.84-5.20); LYMPHOCYTES PERCENT AUTO 3 % (21-46); MONOCYTES PERCENT AUTO 14 % (4-13); Mean Corpuscular HGB 29.8 pg (26.0-34.0); Mean Corpuscular HGB Conc 32.6 g/dL (31.5-36.5); Mean Corpuscular Volume 91 fL (80-100); Mean Platelet Volume 11.3 fL (9.1-12.4); NEUTROPHILS PERCENT AUTO 80 % (41-73); Platelet Count 148 K/mm3 (150-400); RDW Coefficient Variation 13.7 % (11.7-14.2); RDW Standard Deviation 45.8 fL (35.1-46.3); Red Blood Cell Count 3.19 M/mm3 (3.80-5.20); White Blood Cell Count 26.14 K/mm3 (4.00-11.30)
[2022-05-20 04:08] LABS: International Normalized Ratio 3.2; Prothrombin Time Results 31.1 Sec (9.7-11.5)
[2022-05-20 04:11] LABS: Albumin/Globulin Ratio 0.8 (0.8-1.8); Bilirubin, Total 0.7 mg/dL (0.1-1.0); Bun/Creatinine Ratio 25.5 (12.0-20.0); Calcium, Blood 7.8 mg/dL (8.5-10.1); Creatinine, Blood 0.86 mg/dL (0.40-1.00); Globulin, Blood 3.9 g/dL (2.2-4.0); Potassium, Blood 4.3 mmol/L (3.5-5.5); Total Protein, Blood 6.9 g/dL (6.4-8.2)
--- NOTE | 2022-05-20 06:02 | NUR ---
SHIFT SUMMARY: At 1930, the patient was extremely restless, unable to sit still. Complaining of severe generalized pain, including body aches. Medicated with percocet. Fever of 100.7 noted. Dyspnea with exertion. One hour after receiving percocet, the patient was sleeping soundly, vitals stable. I awoke her to give evening meds and she stated that she felt much better. She requested a trazadone to help her sleep through the night, which I administered. She slept comfortably through the night. At 0400, I assisted her to the commode and she noticed improved strength and stability compared to yesterday. Remains on 40%/40L on high flow.
--- NOTE | 2022-05-20 12:00 | NUR ---
Transferred care. Pt resting comfortably, report given to RN assuming care. VS stable, no acute needs.
--- NOTE | 2022-05-21 04:39 | NUR ---
SPOKE WITH DR CHILDS REGARDING PATIENTS PAIN AND THAT SHE IS SO UNCOMFORTABLE EVEN THOUGH PERCOCET AND TYLENOL HAVE BEEN GIVEN INTERMITTENTLY THROUGHOUT SHIFT. PATIENT IS UNABLE TO SLEEP. ORDERS GIVEN FOR FENTANYL 25-50 MCG Q4. GIVE DOSE NOW
[2022-05-21 06:26] LABS: International Normalized Ratio 2.52; Prothrombin Time Results 24.9 Sec (9.7-11.5)
--- NOTE | 2022-05-21 06:29 | NUR ---
PATIENT ALERT AND ORIENTED X4 WITH BUT SOMETIMES FORGETFUL, CONTROLLED AFIB ON TELE, 3L NC, 1 ASSIST TO BEDSIDE COMMODE, 20 LAC SL, REGULAR DIET, PATIENT IN PAIN THROUGHOUT SHIFT THAT COULD NOT BE CONTROLLED, CALLED DR AND RECEIVED AN ORDER FOR FENTANYL IV. PAIN CONTROLLED AND PATIENT RESTING
[2022-05-21 06:31] LABS: Hematocrit 29.1 % (33.0-51.0); Hemoglobin 9.2 g/dL (11.5-16.0); Mean Corpuscular HGB Conc 31.6 g/dL (31.5-36.5); Mean Corpuscular Volume 92 fL (80-100); Mean Platelet Volume 11.9 fL (9.1-12.4); Platelet Count 141 K/mm3 (150-400); RDW Coefficient Variation 14.3 % (11.7-14.2); RDW Standard Deviation 48.1 fL (35.1-46.3); RETICULOCYTE COUNT PERCENT 2.25 % (0.50-2.50); Red Blood Cell Count 3.17 M/mm3 (3.80-5.20); White Blood Cell Count 13.79 K/mm3 (4.00-11.30)
[2022-05-21 07:21] LABS: Creatinine, Blood 0.83 mg/dL (0.40-1.00); Percent Saturation 20.3 % (15.0-50.0); Potassium, Blood 3.7 mmol/L (3.5-5.5)
--- NOTE | 2022-05-21 08:00 | NUR ---
PHYSICIAN CONTACT [employer] CALLED, PT IN AFIB RVR IN THE 140-150'S. PT COMPLAINS OF 6/10 CHEST PAIN AND NOTED TO HAVE SOB WITH O2 SAT AT 94% ON 2L NC. BP TAKEN TWICE, 171/96 THEN 202/93. DR TO NOTIFIED. GAVE PT'S MORNING MEDS EARLY PER DR SCHWAB.
--- NOTE | 2022-05-21 13:30 | NUR ---
Spiritual care visit conducted. Patient is lying in bed and resting but easily awakens. She tells me about the evets that led to her hospitalization and the medical plan of care moving forward. She tells me about her son in [place] and her dtr that lives locally. She tells me about the of her spouse from pancreatic cancer that took place 5yrs ago. She talks about the strength that she draws from her [employer] robert, her family and her cat, but also shares about her readiness and peace about going home to [facility]. She is tearful about the struggles that her grown children are having regarding her poor health. I normalize her experience, and provide therapeutic listening, grief support, theological insights and prayer. Patient responds well and and shows signs of being encouraged in her robert and comforted in her loss. I will continue to remain available to patient and family.
--- NOTE | 2022-05-21 16:49 | NUR ---
PHYSICIAN CONTACT PT NOTED TO BE DISORIENTED, COMPLAINED OF DIZZINESS AND PAIN. STATED THE YEAR WAS 2020. HER O2 SATS WERE 89%, INCREASED O2 TO 5L NC, AND HER O2 INCREASED TO 97%. BP 92/64 SITTING AND 131/77 LYING DOWN. HR AFIB IN THE 130'S. NOTIFIED DR TO WHO INSTRUCTED TO GIVE PT HER 2100 TOPROL NOW. MED GIVEN. WILL RECHECK VITALS IN AN HOUR.
--- NOTE | 2022-05-21 18:26 | NUR ---
SHIFT SUMMARY A&Ox3, SLIGHTLY DISORIENTED A COUPLE TIMES TODAY. PT HAD MULTIPLE AFIB RVR EVENTS IN THE 140-150'S. EVENT THIS MORNING WAS ACCOMPANIED WITH 6/10 CP, SOB, AND ELEVATED SBP AT 202. DR TO INSTRUCTED TO GIVE MORNING TOPROL EARLY. PT'S HR RANGED FROM 90 - 140'S T/O SHIFT. O2 SATS DROPPED TO 89% ON 3L THIS AFTERNOON AND PT WAS NOTED TO BE DISORIENTED, DIZZY, AND FATIGUED. INCREASED TO 5L AND O2 SATS HAVE BEEN IN THE HIGH 90'S. PATIENT CURRENTLY EATING DINNER, CALL LIGHT WITHIN REACH.
--- NOTE | 2022-05-22 04:06 | NUR ---
SHIFT SUMMARY ADMITTED FOR PNEUMONIA/SEPSIS. DNR CODE. IV ANTIB RX ARE SCHEDULED. PLAN IS HOME W/HH WHEN READY FOR DC. TELEMETRY: AFIB @ 135. ANIMAL FEEDER INFORMS ME THAT SHE GOES INTO THE 150'S BPM FREQUENTLY. I CALLED THE HOSPITALIST AND INFORMED HIM, IV LOPRESSOR ORDER RECEIVED. THIS WAS EFFECTIVE, NOW AFIB @ 97 BPM. ON 5 LPM O2 HERE. ON 2 LPM O2 @ BEDTIME WHEN HOME. STANDBY ASSIST TO BSC. ON WARFARIN. CHRONIC BACK AND LEG PAIN, PAIN RX GIVEN THIS SHIFT. TRAZODONE GIVEN FOR INSOMNIA. A&O X4, ON REGULAR DIET. SHE DOES LIVE ALONE
[2022-05-22 05:45] LABS: International Normalized Ratio 1.99
[2022-05-22 06:09] LABS: Bun/Creatinine Ratio 18.5 (12.0-20.0); Calcium, Blood 8.3 mg/dL (8.5-10.1); Creatinine, Blood 0.76 mg/dL (0.40-1.00)
--- NOTE | 2022-05-22 16:32 | NUR ---
SHIFT SUMMARY PT AWAKE DURING SHIFT REPORT. RESTING QUIETLY WITH TV ON. ADMITTED FOR PNM, POSSIBLE ASPIRATION. PT RECEIVING PO AND IV ABX AT START OF SHIFT. PT LOST IV ACCESS. DR TO NOTIFIED; NEW ORDERS PLACED. NO IV ACCESS NEEDED. PO ABX ORDERED. NAUSEA MEDICATION CHANGED TO PO. PT HAS HAD ALOT OF FAMILY IN AND OUT ALL DAY. PT BECOMING A LITTLE ANXIOUS WITH SO MUCH ACTIVITY. P/T IN TO SEE PT; AND CLEARED TO BE INDEPENDENT TO BSC. REQUESTED PAIN MEDICATION FOR BACK PAIN; CHRONIC. MEDICATED PER EMAR. A&O, PLEASANT AND CO-OP. ABLE TO MAKE NEEDS KNOWN. CALL LT IN REACH.
--- NOTE | 2022-05-22 21:53 | NUR ---
PATIENT COMPLAINING OF CHEST PAIN, LEFT JVD, CRACKLES THROUGHOUT LUNGS, CALLED DR MENJIVAR ORDERS GIVEN FOR LASIX AND FENTANYL
--- NOTE | 2022-05-23 04:53 | NUR ---
PATIENT ALERT AND ORIENTED, AFIB CONTROLLED TELE, 3LNC, INDEPENDENT TO BEDSIDE COMMODE, APPLIED PUREWICK D/T PATIENT CONDITION 22 LEFT HAND. PATIENT COMPLAINED OF SOB, PAIN, AND CHEST PRESSURE AT BEGINNING OF SHIFT. PATIENT HAD LEFT JVD AND CRACKLES THROUGHOUT. CALLED DR AND RECEIVED ORDERS FOR 40 MG LASIX IV AND 50 MCG FENTANYL.
[2022-05-23 05:35] LABS: Hematocrit 28.3 % (33.0-51.0); Hemoglobin 9.1 g/dL (11.5-16.0); Mean Corpuscular HGB 29.4 pg (26.0-34.0); Mean Corpuscular HGB Conc 32.2 g/dL (31.5-36.5); Mean Corpuscular Volume 91 fL (80-100); Mean Platelet Volume 11.6 fL (9.1-12.4); Platelet Count 166 K/mm3 (150-400); RDW Coefficient Variation 14.1 % (11.7-14.2); RDW Standard Deviation 47.1 fL (35.1-46.3); White Blood Cell Count 11.37 K/mm3 (4.00-11.30)
[2022-05-23 06:03] LABS: Anion Gap 4 mmol/L (6-16); Blood Urea Nitrogen 15 mg/dL (8-24); Bun/Creatinine Ratio 19.8 (12.0-20.0); CO2, Blood 31 mmol/L (21-32); Chloride, Blood 103 mmol/L (98-108); Creatinine, Blood 0.76 mg/dL (0.40-1.00); Digoxin (Lanoxin) 1.76 ug/mL (0.80-2.00); Glomerular Filtration Rate 77 (60-); Glucose, Blood 138 mg/dL (70-99); Potassium, Blood 3.7 mmol/L (3.5-5.5); Sodium, Blood 138 mmol/L (136-145)
[2022-05-23 06:07] LABS: International Normalized Ratio 2.38; Prothrombin Time Results 23.6 Sec (9.7-11.5)
--- NOTE | 2022-05-23 08:00 | NUR ---
pt laying in bed, called for pain meds, reports neck, shoulder and chest pain, rates at 9/10, states it's not her normal pain, asked charge nurse to obtain ekg, medicated with percocet, and applied heat pad, lungs have fine crackles to upper bennett, dim in bases, resp even and unlabored, denies sob or nausea at this time, currently on 3 liters which is her home dose, hrirr, tele in place running afib per monitor, see strip, trace edema noted to legs, ppp+1, cap refill < 3sec, vs stable, afebrile, piv site to lhand site is clear and patent, btx4, abd flat soft nontender, voids via purwick at this time, skin frail, intact, thomas [place], call light in reach.
--- NOTE | 2022-05-23 18:34 | NUR ---
pt doing ok, lj was removed and using bsc, she's not eating, states she got a bit naseated at lunch, and couldn't eat, offered dilshad mist, she agreed to try that, and reported it really helped, but doesn't want any dinner, offered her alternatives, she refused except icecream. no further changes this shift. call light in reach.
[2022-05-24 05:33] LABS: International Normalized Ratio 2.7; Prothrombin Time Results 26.6 Sec (9.7-11.5)
[2022-05-24 05:37] LABS: Bun/Creatinine Ratio 24.3 (12.0-20.0); Calcium, Blood 8.1 mg/dL (8.5-10.1); Creatinine, Blood 0.7 mg/dL (0.40-1.00); Potassium, Blood 3.6 mmol/L (3.5-5.5)
--- NOTE | 2022-05-24 06:42 | NUR ---
PATIENT HAD ANOTHER EPISODE OF DISTRESS DURING NIGHTSHIFT, PATIENT FELT LIKE SHE WAS HAVING A HARD TIME BREATHING AND PAIN RADIATING FROM BACK TO SHOULDERS TO ABDOMEN. PATIENT AND I HAD A CONVERSATION ABOUT HER ANXIETY AND SHE AGREES THAT SHE IS WAITING FOR DOOM AND GLOOM AND BELIEVES HER EPISODES COULD BE ANXIETY RELATED. MEDICATED PATIENT FOR PAIN THROUGHOUT SHIFT.
--- NOTE | 2022-05-24 17:48 | NUR ---
Shift Summary A/Ox4, pleasant/cooperative. Worked with PT/OT. Medicated for 8/10 generalized pain per EMAR with good effect. Up to BSC independently. Minimal appetite. Calling appropriately. Still having coarse crackles, on 3L O2. Mild dyspnea with exertion, recovers well. Prior to morning meds, apical pulse was 110's. Tele: Afib 88 with PVC's after meds were given. Voiding well.
--- NOTE | 2022-05-24 17:59 | NUR ---
PT FEELING BETTER AND PLANS TO BE DCD HOME ON HOME HEALTH. PT HAS NO NEEDS OR CONCERNS AT THIS TIME.
[2022-05-25 05:46] LABS: Hemoglobin 9.4 g/dL (11.5-16.0); Mean Corpuscular HGB 29.1 pg (26.0-34.0); Mean Corpuscular HGB Conc 31.3 g/dL (31.5-36.5); Mean Corpuscular Volume 93 fL (80-100); Mean Platelet Volume 11.3 fL (9.1-12.4); Platelet Count 184 K/mm3 (150-400); RDW Coefficient Variation 14.2 % (11.7-14.2); RDW Standard Deviation 47.5 fL (35.1-46.3); Red Blood Cell Count 3.23 M/mm3 (3.80-5.20); White Blood Cell Count 6.17 K/mm3 (4.00-11.30)
[2022-05-25 05:53] LABS: International Normalized Ratio 3.17; Prothrombin Time Results 30.9 Sec (9.7-11.5)
[2022-05-25 06:07] LABS: Albumin, Blood 2.8 g/dL (3.4-5.0); Anion Gap 3 mmol/L (6-16); Blood Urea Nitrogen 16 mg/dL (8-24); Bun/Creatinine Ratio 22.7 (12.0-20.0); CO2, Blood 32 mmol/L (21-32); Calcium, Blood 7.9 mg/dL (8.5-10.1); Chloride, Blood 102 mmol/L (98-108); Creatinine, Blood 0.71 mg/dL (0.40-1.00); Glomerular Filtration Rate 84 (60-); Glucose, Blood 105 mg/dL (70-99); Phosphorus, Blood 1.5 mg/dL (2.5-4.9); Potassium, Blood 3.4 mmol/L (3.5-5.5); Sodium, Blood 137 mmol/L (136-145)
--- NOTE | 2022-05-25 06:29 | NUR ---
PATIENT WORRISOME AT BEGINNING OF SHIFT. EDUCATED BEDSIDE ON DISEASE PROCESS. PATIENT FELT RELIEF AND LESS STRESS. PATIENT SLEPT VERY WELL THROUGH SHIFT.
--- NOTE | 2022-05-25 10:30 | NUR ---
Oxygen Eval by RN + PT Sats on RA at rest was 89%, on 1L was 93-98%. Sats on RA with activity went as low as 87-88%. Titrated oxygen from 3L down to 1L continuous at this time.
--- NOTE | 2022-05-25 15:54 | NUR ---
Shift Summary A/Ox4. Had 8 beat run of v-tach, Dr. Wilson notified, order received. Appetite improved. RIBEIRO and generalized pain treated per EMAR with good effect.
--- NOTE | 2022-05-26 06:05 | NUR ---
PATIENT ALERT AND ORIENTED, 1 LITER NC, PATIENT SLEPT WELL ALTHOUGH STILL HAS SOME ANXIETY, PLAN TO D/C HOME WITH HH
[2022-05-26 07:32] LABS: Hematocrit 29.5 % (33.0-51.0); Hemoglobin 9.5 g/dL (11.5-16.0); Mean Corpuscular HGB 29.2 pg (26.0-34.0); Mean Corpuscular HGB Conc 32.2 g/dL (31.5-36.5); Mean Corpuscular Volume 91 fL (80-100); Mean Platelet Volume 11.1 fL (9.1-12.4); Platelet Count 208 K/mm3 (150-400); RDW Coefficient Variation 14.3 % (11.7-14.2); Red Blood Cell Count 3.25 M/mm3 (3.80-5.20); White Blood Cell Count 5.88 K/mm3 (4.00-11.30)
[2022-05-26 07:47] LABS: Bun/Creatinine Ratio 20.6 (12.0-20.0); Calcium, Blood 8.1 mg/dL (8.5-10.1); Creatinine, Blood 0.68 mg/dL (0.40-1.00); Potassium, Blood 3.8 mmol/L (3.5-5.5)
[2022-05-26 07:56] LABS: International Normalized Ratio 2.89; Prothrombin Time Results 28.3 Sec (9.7-11.5)
[2022-05-26 08:14] LABS: BASOPHILS ABSOLUTE MAN 0.23 K/mm3 (0.00-0.23); BASOPHILS PERCENT MAN 4 % (0-2); EOSINOPHILS PERCENT MAN 0 % (0-6); LYMPHOCYTES ABSOLUTE MAN 0.94 K/mm3 (0.84-5.20); LYMPHOCYTES PERCENT MAN 16 % (21-46); MONOCYTES PERCENT MAN 12 % (4-13); MYELOCYTE ABSOLUTE MAN 0.17 K/mm3 (0.00-0.00); MYELOCYTE PERCENT MAN 3 % (0-0); NEUTROPHILS ABSOLUTE MAN 3.82 K/mm3 (1.96-9.15); SEG NEUTROPHILS PERCENT MAN 65 % (41-73); TOTAL CELLS COUNTED 100
[2022-05-26] MEDS ORDERED: FERROUS SULFATE PO (13:55)
[2022-05-26] MEDS ORDERED: Doxycycline Mo100 M1 PO (14:09)
[2022-05-26] MEDS ORDERED: Lisinopril2.5 MG PO (14:10)
[2022-05-26] MEDS ORDERED: VISBIOME 112.51 EACH PO (14:11)
--- NOTE | 2022-05-26 15:08 | NUR ---
SHIFT/DISCHARGE SUMMARY: PATIENT A&OX4. CALM, PLEASANT AND COOPERATIVE c CARE. USES CALL LIGHT APPROPRIATELY AND ABLE TO MAKE NEEDS KNOWN. PATIENT DENIES CP/PRESSURE, N/V, SOB. REPORTS GENERALIZED PAIN AND HEADACHE TREATED PER EMAR c GOOD RELIEF. PATIENT ON TELE, AFIB HR 91 BPM. LUNGS HAS FINE CRACKLES T/O TO AUSCULTATION. PATIENT USES O2 1L VIA NC c SPO2 ABOVE 94% WHEN RESTING IN BED. PATIENT IS CONTINENT OF URINE AND STOOL. USES BSC INDEPENDENTLY. RECEIVED SCHEDULED MEDS PER EMAR. VITAL SIGNS REVIEWED. IV TO L FOREARM DC'D. PATIENT HAD HOME O2 EVAL. PER RT PATIENT NEEDED O2 SUPPLIMENTATION c ACTIVITIES. [employer] COORDIN[employer] c [facility] TO DELIVER PORTABLE O2 IN ROOM AND SET-UP CONCENTRATOR TO PATIENT HOUSE. [facility] DELIVERED PORTABLE O2 IN ROOM AT AROUND 1450. PATIENT DISCHARGE HOME. DISCHARGE INSTRUCTION PACKET GIVEN TO PATIENT. EDUCATE PATIENT AND DAUGHTER AT BEDSIDE REGARDING PATIENT ADMITTING DX, S/S, TX, O2, AND NEW PRESCRIBED MEDICATIONS. PATIENT AND DAUGHTER STATED UNDERSTANDING AND NO FURTHER QUESTIONS. RX WAS FAXED TO PATIENT PREFERRED PHARMACY ([facility]). ALL PATIENT PERSONNAL BELONGINGS WERE SENT HOME WITH THE PATIENT. PATIENT LEFT THE ROOM AT AROUND 1530. PATIENT DECLINE TO BE TRANSPORTED BY STAFF. PATIENT REQUESTED THAT HER [facility] WILL TRANSPORT HER VIA WHEELCHAIR.
== END 2022-05-26 15:29 | disposition home health service (06) | DRG 871 ==
LOC: ER 06:28 → ICUW 08:28 → MEDS 05-20 15:47
PROVIDERS: Emergency Medicine; Internal Medicine; ADMIT Internal Medicine
PROC: 5A09357 Assistance with Respiratory Ventilation, Less than 24 Consecutive Hours, Continuous Positive Airway Pressure (ICD-10-PCS; principal; 2022-05-19)
PROC: 3E03329 Introduction of Other Anti-infective into Peripheral Vein, Percutaneous Approach (ICD-10-PCS; 2022-05-19)
PROC: 4A033R1 Measurement of Arterial Saturation, Peripheral, Percutaneous Approach (ICD-10-PCS; 2022-05-19)
PROC: 5A0935A Assistance with Respiratory Ventilation, Less than 24 Consecutive Hours, High Flow/Velocity Cannula (ICD-10-PCS; 2022-05-19)
DX: A41.9 Sepsis, unspecified organism (principal); I50.43 Acute on chronic combined systolic (congestive) and diastolic (congestive) heart failure; J96.01 Acute respiratory failure with hypoxia; J69.0 Pneumonitis due to inhalation of food and vomit; J18.9 Pneumonia, unspecified organism; I48.92 Unspecified atrial flutter; I42.8 Other cardiomyopathies; I48.19 Other persistent atrial fibrillation; Z66 Do not resuscitate; R65.20 Severe sepsis without septic shock; I35.0 Nonrheumatic aortic (valve) stenosis; I25.10 Atherosclerotic heart disease of native coronary artery without angina pectoris; R54 Age-related physical debility; E03.9 Hypothyroidism, unspecified; I48.0 Paroxysmal atrial fibrillation; I11.0 Hypertensive heart disease with heart failure; F41.9 Anxiety disorder, unspecified; D63.8 Anemia in other chronic diseases classified elsewhere; F32.A Depression, unspecified; K21.9 Gastro-esophageal reflux disease without esophagitis; I07.1 Rheumatic tricuspid insufficiency; I27.20 Pulmonary hypertension, unspecified; E78.5 Hyperlipidemia, unspecified; Z20.822 Contact with and (suspected) exposure to COVID-19; Z88.0 Allergy status to penicillin; Z88.2 Allergy status to sulfonamides; Z95.5 Presence of coronary angioplasty implant and graft; Z91.041 Radiographic dye allergy status; Z91.013 Allergy to seafood; Z79.899 Other long term (current) drug therapy; Z79.01 Long term (current) use of anticoagulants; Z79.891 Long term (current) use of opiate analgesic; Z79.82 Long term (current) use of aspirin; Z86.711 Personal history of pulmonary embolism; Z86.718 Personal history of other venous thrombosis and embolism; Z98.890 Other specified postprocedural states; Z95.2 Presence of prosthetic heart valve
CPT/HCPCS: 0241U; 31720; 36415; 36600; 71045; 80048; 80053; 80069; 80162; 81001; 82728; 82803; 83540; 83550; 83605; 84145; 84436; 85025; 85027; 85045; 85610; 87040; 87086; 92610; 93005; 93010; 93306; 94760; 94761; 94762; 96365; 96367; 96375; 97110; 97161; 97530; 99285-25; A9270; C9113; J0456; J0696; J1940; J2550; J2765; J3010; J7030; J7050

== ENCOUNTER 2022-10-19 17:08 | Emergency (ER) | payer MEDICARE, BC ==
[~2022-10-19] VITALS: Ht 165.1 cm; Wt 61.2 kg
[~2022-10-19 17:08] MED LIST changes: +Doxycycline Mo100 M1 PO; +FERROUS SULFATE PO; +Lisinopril2.5 MG PO; +VISBIOME 112.51 EACH PO
[2022-10-19 17:16] VITALS: BP 150/97
== END 2022-10-19 18:54 | disposition home or self-care (01) ==
LOC: ER 17:08
DX: S61.211A Laceration without foreign body of left index finger without damage to nail, initial encounter (principal); W26.8XXA Contact with other sharp object(s), not elsewhere classified, initial encounter; Z88.0 Allergy status to penicillin; Z88.8 Allergy status to other drugs, medicaments and biological substances; Z88.2 Allergy status to sulfonamides; Z91.013 Allergy to seafood; Z91.041 Radiographic dye allergy status; Z79.899 Other long term (current) drug therapy; Z79.82 Long term (current) use of aspirin; Z79.01 Long term (current) use of anticoagulants; I48.91 Unspecified atrial fibrillation; I11.0 Hypertensive heart disease with heart failure; I50.9 Heart failure, unspecified; E03.9 Hypothyroidism, unspecified; K21.9 Gastro-esophageal reflux disease without esophagitis
CPT/HCPCS: 12001; 90471; 90715; 99282-25